=== PATIENT | male | born 1985 | race Caucasian/White ===

== ENCOUNTER → 2022-05-27 11:19 | Outpatient (CLI) | payer SELFPAY ==
[2022-05-27 13:27] LABS: Influenza A - CEPHEID Flu A POSITIVE (NEGATIVE); Influenza B - CEPHEID Flu B NEGATIVE (NEGATIVE); Respiratory Syncytial Virus Negative (Negative)
[2022-05-27 13:28] LABS: COVID-19 CEPHEID 4-PLEX PCR Negative (Negative)
== END ==
PROVIDERS: Visit Provider Nurse Practitioner Family
DX: R68.89 Other general symptoms and signs (principal)
CPT/HCPCS: 0241U